=== PATIENT | female | born 1925 | race Caucasian/White ===

== ENCOUNTER → 2016-11-15 | Outpatient (CLI) | payer MEDICARE, BC ==
[~2016-11-15] MED LIST: /AMLO25TA PO; /MOM400 PO; /SUCR1TA OR; /WARF2TA PO; ACET65TA OR; AMBI10TA OR; AMBI10TA PO; AMBI12.52 PO; AMLO10TA2 PO; AMLO5TAB2 PO; ATAC32TA OR; B-12100T2 PO; BABY81CH OR; BIMA01SOL OU; BISAC5TA PO; CALC500T36 PO; CALCCHW12 OR; COZA100T OR; DORZ2SOL5 OU; DOXY100T OR; DRIS50002 PO; FERG1TAB PO; FERR32TA PO; FLEC100T2 PO; FLEC50TA PO; FLEC50TA2 OR; FLON0.05; FURO20TA2 PO; FURO40TA2 PO; LASI40TA OR; LASI40TA PO; LEVO88TA3 PO; LIDO5DIS TOP; LIDO5DIS36 TD; LOPR50TA OR; LOPR50TA PO; LOSA100T36 PO; MACR50CA OR; METO25TAB PO; MICR10CA PO; MILKSUS OR; MILKSUS PO; MIRA255PW PO; MIRA3350 PO; MYLATAB OR; NEUR100C PO; NORV5TAB OR; Occuvite OR; PERC5TAB PO; POTA10TA16 PO; POTA1TAB14 PO; POTA20TA2 OR; PRED1TA OR; PRESCAP PO; PRIL40CA OR; PROTONIX; PROTPAK OR; SENO8.6T10 PO; SENO8.6T5 OR; SENO8.6T9 PO; SYNT88TA OR; SYNT88TA2 PO; TRAM200T PO; TRAM50TA2 OR; TRAM50TA2 PO; TRIC145T19 OR; TYLE325T5 PO; ULTR50TA PO; VITA-130 PO; VITA10002 PO; VITA100T20 PO; VITAMIN D50000 UNT OR; VITB 12; [UNRECOGNIZED DRUG - CODE] TOP; [UNRECOGNIZED DRUG - OTHER]; [UNRECOGNIZED DRUG - OTHER] OU; [UNRECOGNIZED DRUG - REMARK]; [UNRECOGNIZED DRUG - REMARK]; [UNRECOGNIZED DRUG - REMARK]; [UNRECOGNIZED DRUG - REMARK]; boniva OR; cyanocobalamin IM; ocuvite PO; vitamin d PO
[2016-11-15 18:26] LABS: MEAN CORPUSCULAR HEMOGLOBIN 31.9 pg (27.0-33.0); MEAN CORPUSCULAR HGB CONC 32.9 g/dl (32.0-36.5); RED CELL DISTRIBUTION WIDTH 14.2 % (11.5-14.5); WHITE BLOOD COUNT 9.7 K/mm3 (4.0-10.0)
[2016-11-15 18:34] LABS: CALCIUM LEVEL 8.5 MG/DL (8.8-10.2); CREATININE FOR GFR 1.81 MG/DL (0.55-1.02); MAGNESIUM LEVEL 2.3 MG/DL (1.8-2.4); POTASSIUM SERUM 4.5 MEQ/L (3.5-5.1)
== END ==
LOC: M SMT 10:23
PROVIDERS: ATTEND Nurse Practitioner Family
DX: R42 Dizziness and giddiness (principal)

== ENCOUNTER → 2016-11-19 | Outpatient (REF) | payer MEDICARE, BC | LOC: M SFHCPLAZ 12:11 | PROVIDERS: ATTEND Internal Medicine | DX: I10 Essential (primary) hypertension (principal); E03.9 Hypothyroidism, unspecified; E55.9 Vitamin D deficiency, unspecified; Z53.9 Procedure and treatment not carried out, unspecified reason ==

== ENCOUNTER → 2017-01-17 | Outpatient (CLI) | payer MEDICARE, BC ==
[2017-01-17 13:08] LABS: MEAN CORPUSCULAR HEMOGLOBIN 31.9 pg (27.0-33.0); MEAN CORPUSCULAR VOLUME 96.7 fl (80.0-96.0); RED CELL DISTRIBUTION WIDTH 13.4 % (11.5-14.5); WHITE BLOOD COUNT 8.4 K/mm3 (4.0-10.0)
[2017-01-17 13:35] LABS: ALBUMIN 3.6 GM/DL (3.2-5.2); ALBUMIN/GLOBULIN RATIO 1.13 (1.00-1.93); BILIRUBIN,TOTAL 0.4 MG/DL (0.2-1.0); CALCIUM LEVEL 8.1 MG/DL (8.8-10.2); CREATININE FOR GFR 1.68 MG/DL (0.55-1.02); GLOMERULAR FILTRATION RATE 30.5 (>32); POTASSIUM SERUM 4.6 MEQ/L (3.5-5.1); TOTAL PROTEIN 6.8 GM/DL (6.4-8.2)
== END ==
LOC: M SMT 09:15
PROVIDERS: ATTEND Internal Medicine
DX: E53.8 Deficiency of other specified B group vitamins (principal); I10 Essential (primary) hypertension; E03.9 Hypothyroidism, unspecified